=== PATIENT | female | born 1985 | race Two or more races ===

== ENCOUNTER 2023-05-27 08:25 | Emergency (ER) | payer MEDICAID, OTHER ==
[~2023-05-27] VITALS: Ht 157.5 cm; Wt 69.4 kg
[2023-05-27 10:33] LABS: Chloride 108 mmol/L (98-107); Potassium 4.4 mmol/L (3.5-5.1); Sodium 140 mmol/L (136-145)
[2023-05-27 10:34] LABS: Anion Gap 4 (5-15); Carbon Dioxide 28 mmol/L (20-30)
[2023-05-27 10:35] LABS: Calcium 9.2 mg/dL (8.5-10.1)
[2023-05-27 10:39] LABS: BUN/Creatinine Ratio 7.4 (10.0-20.0); Blood Urea Nitrogen 5 mg/dL (9-23); Glucose 95 mg/dL (74-106)
[2023-05-27 10:50] VITALS: BP 118/74; PULSE 67; RESP 18; TEMP 98.3; O2SAT 98
[2023-05-27] MEDS ORDERED: METH-1181 PO (10:53)
[2023-05-27] MEDS ORDERED: POLY1DRO14 OP (10:53)
[2023-05-31] MEDS ORDERED: DEX4T PO (01:10)
[2023-05-31] MEDS ORDERED: ACYC400T16 PO (01:10)
[2023-05-31] MEDS ORDERED: DOXY100C4 PO (01:10)
== END 2023-05-27 11:00 | disposition home or self-care (01) ==
LOC: ER 08:25
DX: G24.5 Blepharospasm (principal)
CPT/HCPCS: 36415; 80048